=== PATIENT | male | born 1990 | race Caucasian/White ===

== ENCOUNTER 2021-12-01 14:27 | Outpatient (REF) | payer SELFPAY ==
[2021-12-01] VITALS (8 sets, daily range): BP systolic 125–158; BP diastolic 81–93; PULSE 68–90; RESP 14–18; TEMP 36.1; O2SAT 93–96; BMI 41.2
[2021-12-01] MEDS: 0.9% Normal Saline 1,000 ML 150 ML IV (14:30)
[2021-12-01] MEDS: Naloxone 2 MG/2 ML Syringe NASAL (14:30)
--- NOTE | 2021-12-01 14:36 | EKG12_ITS ---
Test Reason : OD Blood Pressure : / mmHG Vent. Rate : 081 BPM Atrial Rate : 081 BPM P-R Int : 156 ms QRS Dur : 094 ms QT Int : 360 ms P-R-T Axes : 019 -05 030 degrees QTc Int : 418 ms Normal sinus rhythm Inferior infarct , age undetermined , cannot be excluded Poor R wave progression Abnormal ECG Confirmed by DIGNA SUMNER, LESLIE ([id number]), department editor TITA CHAHAL ([id number]) on 12/03/2021 1:02:27 PM Referred By: Confirmed By:LESLIE SAWYER MD
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
[2021-12-01 15:21] LABS: Absolute Lymphocyte Count 0.82 X10^3/uL (0.83-4.51); Absolute Neutrophil Count 5.9 X10^3/uL (2.0-7.7); Basophil# 0.03 X10^3/uL; Basophil% 0.4 % (0-1); Eosinophil# 0.11 X10^3/uL; Eosinophils% 1.5 % (0-5); Hematocrit 50.7 % (40-54); Hemoglobin 16.4 g/dL (13.0-16.5); Lymphocyte # 0.82 X10^3/ul (0.83-4.51); Lymphocyte % 11.2 % (19-41); Mean Corp Hgb Conc 32.3 g/dL (32-36); Mean Corpuscular Hgb 31.2 pg (27.0-32.0); Mean Corpuscular Volume 96.6 fL (80-94); Mean Platelet Vol. 9.8 fl (6.2-12.0); Monocyte# 0.47 X10^3/uL; Monocyte% 6.4 % (0-10); NRBC Flagged by Analyzer 0 % (0-5); Neutrophil # 5.86 X10^3/uL (2.7-7.7); Neutrophil % 79.8 % (47-70); Platelet Count 232 K/mm3 (150-450); RBC Distribution Width CV 15.7 % (11.6-14.6); RBC Distribution Width SD 55.8 fl (35.1-43.9); Red Blood Count 5.25 M/mm3 (4.6-6.2); White Blood Count 7.3 K/mm3 (4.4-11.0)
[2021-12-01 15:41] LABS: AST(SGOT) 16 U/L (15-37); Alanine Aminotransfer ALT/SGPT 19 U/L (16-61); Albumin, Serum 3.4 g/dL (3.2-5.0); Alkaline Phosphatase 72 U/L (45-117); Anion Gap 6 (5-15); BUN 13 mg/dL (7-18); BUN/Creat Ratio 13.7 RATIO (10-20); Bilirubin, Direct 0.13 mg/dL (0.00-0.30); Calcium,Total 8.6 mg/dL (8.5-10.1); Chloride 109 mmol/L (98-107); Creatinine, Serum 0.95 mg/dL (0.70-1.30); EST Glomerular Filtration Rate 98 mL/min (>60); Est Glom Filt Rate - Afr Amer 119 mL/min (>60); Globulin 3.7 g/dL (2.2-4.2); Glucose 107 mg/dL (74-106); Potassium 3.8 mmol/L (3.5-5.1); Protein, Total 7.1 g/dL (6.4-8.2); Sodium Level 142 mmol/L (136-145)
[2021-12-01 16:04] LABS: Alcohol, Blood (Medical)-Serum < 3.0 mg/dL
[2021-12-01 16:23] LABS: Amphetamine Urine VISTA POSITIVE (<1000 ng/mL); Barbiturate Urine VISTA NEGATIVE (< 200 ng/mL); Benzodiazepine Urine VISTA NEGATIVE (< 200 ng/mL); Cocaine Urine VISTA NEGATIVE (< 300 ng/mL); Ecstacy Urine VISTA POSITIVE (< 500 ng/mL); Methadone Urine VISTA NEGATIVE (< 300 ng/mL); PCP Urine VISTA NEGATIVE (< 25 ng/mL); THC Urine VISTA POSITIVE (< 50 ng/mL); Vista UDS pH Range 4
--- NOTE | 2021-12-01 18:35 | ED.RN ---
PD [facility] to [facility]. Discharge instructions given, paperwork taken by officer. Pt ambulatory.
== END 2021-12-01 18:41 ==
LOC: ED 14:27
PROVIDERS: Visit Provider Emergency Medicine
DX: T43.621A Poisoning by amphetamines, accidental (unintentional), initial encounter (principal); F15.10 Other stimulant abuse, uncomplicated; R09.02 Hypoxemia; F12.90 Cannabis use, unspecified, uncomplicated
CPT/HCPCS: 80048; 80076; 80307; 82077; 85025; 93005; J7030; A4216